=== PATIENT | female | born 1975 | race American Indian/Alaskan Native ===

== ENCOUNTER 2016-11-08 16:44 | Emergency (ER) | payer SELFPAY ==
[2016-11-08] MEDS ORDERED: CLEOCIN IM ONE (19:47)
[2016-11-08] MEDS ORDERED: NACL 0.9% IR ONE (19:47)
[2016-11-08] MEDS ORDERED: XYLOCAINE 1% 20 mL INFILTRATI ONE (19:47)
--- NOTE | 2016-11-08 19:49 | Emergency Department Report ---
ED General Adult HPI - General Chief complaint: Skin/Abscess/Foreign Body Stated complaint: BOIL UNDER R ARM Time Seen by Provider: 11/08/16 19:38 Source: patient Mode of arrival: Ambulatory Limitations: No Limitations - History of Present Illness Initial comments: PT c/o abscess under R arm. PT states it has been there for 1 week. PT states she has had abscesses before that have needed to be drained. PT denies n/v but reports chills. PT states she took Motrin 1 hr ago. MD Complaint: abscess Onset/Timin -: Gradual, week(s) Location: right (Axilla ) Radiation: non-radiation Severity scale (0 -10): 10 Quality: constant Consistency: constant Improves with: medication (mild ) Associated Symptoms: fever/chills (subjective ). denies: chest pain, headaches , nausea/vomiting Treatments Prior to Arrival: NSAID - Related Data Home Medications Medication Instructions Recorded Confirmed Last Taken Amitriptyline [Elavil] 10 mg PO QHS 07/09/16 07/09/16 Unknown Previous Rx's Medication Instructions Recorded Last Taken Type Ibuprofen [Motrin] 600 mg PO Q8H PRN #25 tablet 07/09/16 Unknown Rx Allergies Allergy/AdvReac Type Severity Reaction Status Date / Time amoxicillin Allergy Hives Verified 11/08/16 17:15 hydrocodone Allergy Unknown Verified 01/31/16 09:21 sulfamethoxazole Allergy Hives Verified 01/31/16 09:21 [From Bactrim] tramadol Allergy Unknown Verified 01/31/16 09:21 trimethoprim [From Bactrim] Allergy Hives Verified 01/31/16 09:21 ED Review of Systems ROS: Stated complaint: BOIL UNDER R ARM Other details as noted in HPI Constitutional: chills, fever Gastrointestinal: denies: nausea, vomiting Skin: as per HPI, change in color ED Past Medical Hx - Past Medical History Previous Medical History?: Yes Additional medical history: IBS, Boils, Lupus - Surgical History Past Surgical History?: Yes Additional Surgical History: Cervical fusion 2014 - Social History Smoking Status: Never Smoker Substance Use Type: None - Medications Home Medications: Home Medications Medication Instructions Recorded Confirmed Last Taken Type Amitriptyline [Elavil] 10 mg PO QHS 07/09/16 07/09/16 Unknown History Ibuprofen [Motrin] 600 mg PO Q8H PRN #25 tablet 07/09/16 Unknown Rx ED Physical Exam - General Limitations: No Limitations General appearance: alert, in no apparent distress - Head Head exam: Present: atraumatic, normocephalic - Eye Eye exam: Present: normal appearance. Absent: conjunctival injection - Neck Neck exam: Present: normal inspection, full ROM. Absent: lymphadenopathy - Respiratory Respiratory exam: Absent: respiratory distress, wheezes - Cardiovascular Cardiovascular Exam: Present: regular rate, normal rhythm - Extremities Exam Extremities exam: Present: full ROM, tenderness (to abscess to R axilla ), normal capillary refill - Back Exam Back exam: Present: normal inspection, full ROM - Neurological Exam Neurological exam: Present: alert, oriented X3 - Psychiatric Psychiatric exam: Present: normal affect, normal mood - Skin Skin exam: Present: warm, dry, erythema (abscess) ED Course Vital Signs 11/08/16 17:16 Temperature 99.3 F Pulse Rate 61 Respiratory 16 Rate Blood Pressure 112/68 O2 Sat by Pulse 100 Oximetry - Reevaluation(s) Reevaluation #1: 11/08/16 19:50 PT gave verbal consent for I and D Reevaluation #2: 11/08/16 20:28 PT tolerated the procedure well. no immediate complications - I & D Right Shoulder Type of Procedure: Simple Site: R axilla Blade Size: 11 I & D Procedure: betadine prep, sterile drapes applied, gauze wick placed Progress: 6 mls lidocaine used to anesthetize R axilla abscess. 11 blade used to make a 1cm incision. copious amount of purulent drainage. site flushed. locations broke up with hemostats and site packed with iodoform gauze - Pulse Oximetry Interpretation Digit-Finger Initial Pulse Oximetry Readin ED Medical Decision Making - Differential Diagnosis abscess, cellulitis Critical care attestation.: If time is entered above; I have spent that time in minutes in the direct care of this critically ill patient, excluding procedure time. ED Disposition Clinical Impression: Abscess Disposition: DISCHARGED TO HOME OR SELFCARE Is pt being admited?: No Does the pt Need Aspirin: No Condition: Stable Instructions: Abscess Incision and Drainage (ED), Abscess (ED) Additional Instructions: Warm compresses at least 4 times a day Finish all antibiotics Continue Motrin Packing removal in 2 days - return sooner if worsening or concerns Time of Disposition: 20:28
[2016-11-08 20:41] VITALS: BP 141/77
== END 2016-11-08 20:42 | disposition home or self-care (01) ==
LOC: ED 16:44
DX: L02.411 Cutaneous abscess of right axilla (principal); Z88.1 Allergy status to other antibiotic agents; Z88.2 Allergy status to sulfonamides; Z88.6 Allergy status to analgesic agent; Z88.8 Allergy status to other drugs, medicaments and biological substances
CPT/HCPCS: 96372

== ENCOUNTER 2017-08-21 10:07 | Emergency (ER) | payer OTHER ==
[2017-08-21 10:17] VITALS: BP 156/92
[2017-08-21] MEDS ORDERED: CLEOCIN PO ONE (11:55)
--- NOTE | 2017-08-21 11:57 | Emergency Department Report ---
Abscess Boil HPI - HPI Chief Complaint: Skin/Abscess/Foreign Body Stated Complaint: BOIL Time Seen by Provider: 08/21/17 11:32 Duration: 4 Days Location: Upper Extremity (Right armpit) History: Yes Pain, Yes Previous History, No Fever, No Purulent Drainage, No Numbness, No Foreign Body, No Insect Bite HPI: Patient is a 41-year-old female presents to ED complaining of ball underneath his right arm 1 week. Patient is states that it started off as a small boil and has gotten bigger in the past week. Patient states she has not noticed any draining at about that. Patient states she has before . Home Medications: Home Medications Medication Instructions Recorded Confirmed Last Taken Amitriptyline [Elavil] 10 mg PO QHS 07/09/16 07/09/16 Unknown Previous Rx's Medication Instructions Recorded Last Taken Type Clindamycin [Clindamycin CAP] 300 mg PO Q8H #30 cap 08/21/17 Unknown Rx Ibuprofen [Motrin 600 MG tab] 600 mg PO Q8H PRN #25 tablet 08/21/17 Unknown Rx Allergies/Adverse Reactions: Allergies Allergy/AdvReac Type Severity Reaction Status Date / Time amoxicillin Allergy Hives Verified 11/08/16 17:15 hydrocodone Allergy Unknown Verified 01/31/16 09:21 sulfamethoxazole Allergy Hives Verified 01/31/16 09:21 [From Bactrim] tramadol Allergy Unknown Verified 01/31/16 09:21 trimethoprim [From Bactrim] Allergy Hives Verified 01/31/16 09:21 ED Review of Systems ROS: Stated complaint: BOIL Other details as noted in HPI Constitutional: denies: chills, fever Eyes: denies: eye pain, eye discharge, vision change ENT: denies: ear pain, throat pain Respiratory: denies: cough, shortness of breath, wheezing Cardiovascular: denies: chest pain, palpitations Endocrine: no symptoms reported Gastrointestinal: denies: abdominal pain, nausea, diarrhea Genitourinary: denies: urgency, dysuria, discharge Musculoskeletal: denies: back pain, joint swelling, arthralgia Skin: denies: rash, lesions Neurological: denies: headache, weakness, paresthesias Psychiatric: denies: anxiety, depression Hematological/Lymphatic: denies: easy bleeding, easy bruising ED Past Medical Hx - Past Medical History Previous Medical History?: Yes Additional medical history: IBS, Boils, Lupus - Surgical History Past Surgical History?: Yes Additional Surgical History: Cervical fusion 2014 - Social History Smoking Status: Never Smoker Substance Use Type: None - Medications Home Medications: Home Medications Medication Instructions Recorded Confirmed Last Taken Type Amitriptyline [Elavil] 10 mg PO QHS 07/09/16 07/09/16 Unknown History Clindamycin [Clindamycin CAP] 300 mg PO Q8H #30 cap 08/21/17 Unknown Rx Ibuprofen [Motrin 600 MG tab] 600 mg PO Q8H PRN #25 tablet 08/21/17 Unknown Rx ED Abscess Boil Physical Exam - Exam General: Vital signs noted. No distress. Alert and acting appropriately. Front/Back of Body, Lg (Color): 1 - 4 cm flactulant abscess Size: 4 cm Exam: Yes Tenderness, Yes Fluctuance, No Surrounding Cellulites/Erythema, No Lymphangitis, No Crepitation, No Heart Murmur, No Normal Neurologic Exam, No Normal Circulation I & D Note - I & D Note I & D Note: Patient positioned appropriately, 10cc lidocaine without epinephrine was used as a local anesthetic. #11 blade scalpal used for single incision. Additional local anesthetic injected into surrounding viable tissue prior to blunt dissection of loculated adhesions. Copius drainage of pus. Wound packed with iodoform 1/4' gauze. Procedure tolerated without complications. Wound dressed with sterile 4x4 guaze and paper tape. Pt tolerated procedure well. ED Course Vital Signs 08/21/17 10:16 Temperature 98.2 F Pulse Rate 88 Respiratory 16 Rate Blood Pressure 156/92 O2 Sat by Pulse 100 Oximetry Critical care attestation.: If time is entered above; I have spent that time in minutes in the direct care of this critically ill patient, excluding procedure time. ED Medical Decision Making - Medical Decision Making 42 y .o female presents with right axilla abscess ED course: Patient tolerated procedure well I discussed with the patient to follow-up with primary care physician base. Discussed patient to return and 3 days for packing removal and wound check. Discussed the patient has symptoms worsen to return to ED immediately Vital signs are normalized patient has some acute distress. ED Disposition Clinical Impression: Right axillary hidradenitis Disposition: DC- TO HOME OR SELFCARE Is pt being admited?: No Does the pt Need Aspirin: No Condition: Stable Instructions: Acute Wound Care (ED), Adenitis (ED) Additional Instructions: Make sure to follow up with the primary care physician as discussed. Take all your medications as you've been prescribed. If you have any worsening symptoms or develop new symptoms please return to ED immediately. Return in 3 days for wound check Prescriptions: Clindamycin [Clindamycin CAP] 300 mg PO Q8H #30 cap Ibuprofen [Motrin 600 MG tab] 600 mg PO Q8H PRN #25 tablet PRN Reason: Pain Referrals: MICHI MONTERO MD [Staff Physician] - 3-[address] [facility] [Outside] - 3-5 Days [facility] [Outside] - 3-5 Days Forms: Work/School Release Form(ED)
[2017-08-21] MEDS ORDERED: XYLOCAINE 2% INFILTRATI ONE (12:33)
== END 2017-08-21 13:17 | disposition home or self-care (01) ==
LOC: ED 10:07
DX: L73.2 Hidradenitis suppurativa (principal)

== ENCOUNTER 2018-10-05 01:04 | Emergency (ER) | payer OTHER ==
[2018-10-05 03:43] VITALS: BP 153/74
[2018-10-05] MEDS ORDERED: IBUPROFEN PO ONE (07:19)
[2018-10-05] MEDS ORDERED: BENADRYL PO ONE (07:19)
--- NOTE | 2018-10-05 07:20 | Emergency Department Report ---
Abscess Boil HPI - HPI Chief Complaint: Skin/Abscess/Foreign Body Stated Complaint: BOIL UNDER R ARM Time Seen by Provider: 10/05/18 07:12 Duration: 5 Days Location: Upper Extremity (right armpit) Severity: Moderate History: Yes Pain, Yes Previous History, No Fever, No Purulent Drainage, No Numbness, No Foreign Body, No Insect Bite HPI: This is a 43-year-old female presents to the complaining of right armpit abscess. Patient complains hurts his swallowing has gotten bigger. She denies fevers/chills/nausea vomiting. Patient's issues at this before. Home Medications: Home Medications Medication Instructions Recorded Confirmed Last Taken Amitriptyline [Elavil] 10 mg PO QHS 07/09/16 07/09/16 Unknown Previous Rx's Medication Instructions Recorded Last Taken Type Clindamycin [Clindamycin CAP] 300 mg PO Q8H #30 cap 10/05/18 Unknown Rx Ibuprofen [Motrin 600 MG tab] 600 mg PO Q8H PRN #25 tablet 10/05/18 Unknown Rx Allergies/Adverse Reactions: Allergies Allergy/AdvReac Type Severity Reaction Status Date / Time amoxicillin Allergy Hives Verified 11/08/16 17:15 hydrocodone Allergy Unknown Verified 01/31/16 09:21 sulfamethoxazole Allergy Hives Verified 01/31/16 09:21 [From Bactrim] tramadol Allergy Unknown Verified 01/31/16 09:21 trimethoprim [From Bactrim] Allergy Hives Verified 01/31/16 09:21 ED Review of Systems ROS: Stated complaint: BOIL UNDER R ARM Other details as noted in HPI Comment: All other systems reviewed and negative ED Past Medical Hx - Past Medical History Previous Medical History?: No Additional medical history: IBS, Boils, Lupus - Surgical History Past Surgical History?: Yes Additional Surgical History: Cervical fusion 2014 - Social History Smoking Status: Never Smoker Substance Use Type: None - Medications Home Medications: Home Medications Medication Instructions Recorded Confirmed Last Taken Type Amitriptyline [Elavil] 10 mg PO QHS 07/09/16 07/09/16 Unknown History Clindamycin [Clindamycin CAP] 300 mg PO Q8H #30 cap 10/05/18 Unknown Rx Ibuprofen [Motrin 600 MG tab] 600 mg PO Q8H PRN #25 tablet 10/05/18 Unknown Rx ED Abscess Boil Physical Exam - Exam General: Vital signs noted. No distress. Alert and acting appropriately. Size: 5 cm Exam: Yes Tenderness, Yes Fluctuance, Yes Surrounding Cellulites/Erythema, Yes Normal Neurologic Exam, Yes Normal Circulation, No Lymphangitis, No Crepitation, No Heart Murmur I & D Note - I & D Note I & D Note: Patient positioned appropriately, 12cc lidocaine without epinephrine was used as a local anesthetic. #11 blade scalpal used for single incision. Additional local anesthetic injected into surrounding viable tissue prior to blunt dissection of loculated adhesions. Copius drainage of pus. Wound packed with iodoform gauze. Procedure tolerated without complications. Wound dressed with sterile 4x4 guaze and paper tape. Pt tolerated procedure well. ED Course Vital Signs 10/05/18 01:27 Temperature 99.3 F Pulse Rate 69 Respiratory 18 Rate Blood Pressure 153/74 O2 Sat by Pulse 100 Oximetry Critical care attestation.: If time is entered above; I have spent that time in minutes in the direct care of this critically ill patient, excluding procedure time. ED Medical Decision Making - Medical Decision Making 43-year-old female presents axillary abscess I&D performed, see I & D note Discussed with the patient to return to ED in 72 hours for packing removal and wound check Patient discharge and will be some clindamycin and Motrin for pain \ Patient is in no acute distress ED Disposition Clinical Impression: Abscess, Abscess of axilla, right Disposition: DC- TO HOME OR SELFCARE Is pt being admited?: No Does the pt Need Aspirin: No Condition: Stable Instructions: Abscess Incision and Drainage (ED), Abscess (ED) Additional Instructions: Make sure to follow up with the primary care physician as discussed. Take all your medications as you've been prescribed. If you have any worsening symptoms or develop new symptoms please return to ED immediately. Prescriptions: Clindamycin [Clindamycin CAP] 300 mg PO Q8H #30 cap Ibuprofen [Motrin 600 MG tab] 600 mg PO Q8H PRN #25 tablet PRN Reason: Pain Referrals: VADIM ALFRED MD [Primary Care Provider] - 3-5 Days MICHI MONTERO MD [Staff Physician] - 3-5 Days [facility] [Outside] - 3-5 Days [facility] [Outside] - 3-5 Days Forms: Accompanied Note, Work/School Release Form(ED) Time of Disposition: 08:00
[2018-10-05] MEDS ORDERED: XYLOCAINE 1% 20 mL INFILTRATI NR (07:30)
== END 2018-10-05 09:29 | disposition home or self-care (01) ==
LOC: ED 01:04
DX: L02.411 Cutaneous abscess of right axilla (principal); K58.9 Irritable bowel syndrome, unspecified; Z88.1 Allergy status to other antibiotic agents; Z88.2 Allergy status to sulfonamides; Z88.6 Allergy status to analgesic agent
CPT/HCPCS: 99282

== ENCOUNTER 2019-01-06 07:40 | Emergency (ER) | payer OTHER ==
[2019-01-06 07:47] VITALS: BP 142/84
--- NOTE | 2019-01-06 08:48 | Emergency Department Report ---
- General Chief complaint: Skin/Abscess/Foreign Body Stated complaint: LFT UNDERARM BOIL/PAIN Time Seen by Provider: 01/06/19 08:40 Source: patient Mode of arrival: Ambulatory Limitations: No Limitations - History of Present Illness MD complaint: abscess/boil -: days(s) (7) Location: LUE (axilla) Severity scale (0 -10): 5 Consistency: constant Associated symptoms: denies other symptoms - Related Data Home Medications Medication Instructions Recorded Confirmed Last Taken Amitriptyline [Elavil] 10 mg PO QHS 07/09/16 07/09/16 Unknown Previous Rx's Medication Instructions Recorded Last Taken Type Clindamycin [Clindamycin CAP] 300 mg PO Q8H #30 cap 10/05/18 Unknown Rx Ibuprofen [Motrin 600 MG tab] 600 mg PO Q8H PRN #25 tablet 10/05/18 Unknown Rx Allergies Allergy/AdvReac Type Severity Reaction Status Date / Time amoxicillin Allergy Hives Verified 11/08/16 17:15 hydrocodone Allergy Unknown Verified 01/31/16 09:21 sulfamethoxazole Allergy Hives Verified 01/31/16 09:21 [From Bactrim] tramadol Allergy Unknown Verified 01/31/16 09:21 trimethoprim [From Bactrim] Allergy Hives Verified 01/31/16 09:21 Abscess Boil HPI - HPI Chief Complaint: Skin/Abscess/Foreign Body Stated Complaint: LFT UNDERARM BOIL/PAIN Time Seen by Provider: 01/06/19 08:40 Home Medications: Home Medications Medication Instructions Recorded Confirmed Last Taken Amitriptyline [Elavil] 10 mg PO QHS 07/09/16 07/09/16 Unknown Previous Rx's Medication Instructions Recorded Last Taken Type Clindamycin [Clindamycin CAP] 300 mg PO Q8H #30 cap 10/05/18 Unknown Rx Ibuprofen [Motrin 600 MG tab] 600 mg PO Q8H PRN #25 tablet 10/05/18 Unknown Rx Allergies/Adverse Reactions: Allergies Allergy/AdvReac Type Severity Reaction Status Date / Time amoxicillin Allergy Hives Verified 11/08/16 17:15 hydrocodone Allergy Unknown Verified 01/31/16 09:21 sulfamethoxazole Allergy Hives Verified 01/31/16 09:21 [From Bactrim] tramadol Allergy Unknown Verified 01/31/16 09:21 trimethoprim [From Bactrim] Allergy Hives Verified 01/31/16 09:21 ED Review of Systems ROS: Stated complaint: LFT UNDERARM BOIL/PAIN Other details as noted in HPI Comment: All other systems reviewed and negative Constitutional: denies: chills, fever Respiratory: denies: cough, shortness of breath, SOB with exertion Cardiovascular: denies: chest pain, palpitations Gastrointestinal: denies: abdominal pain, nausea, vomiting Musculoskeletal: denies: back pain Neurological: denies: headache, weakness ED Past Medical Hx - Past Medical History Previous Medical History?: Yes Additional medical history: IBS, Boils, Lupus - Surgical History Past Surgical History?: Yes Additional Surgical History: Cervical fusion 2014 - Social History Smoking Status: Never Smoker Substance Use Type: None - Medications Home Medications: Home Medications Medication Instructions Recorded Confirmed Last Taken Type Amitriptyline [Elavil] 10 mg PO QHS 07/09/16 07/09/16 Unknown History Clindamycin [Clindamycin CAP] 300 mg PO Q8H #30 cap 10/05/18 Unknown Rx Ibuprofen [Motrin 600 MG tab] 600 mg PO Q8H PRN #25 tablet 10/05/18 Unknown Rx ED Physical Exam - General Limitations: No Limitations General appearance: alert, in no apparent distress - Head Head exam: Present: atraumatic, normocephalic, normal inspection - Eye Eye exam: Present: normal appearance - ENT ENT exam: Present: normal exam, normal orophraynx, mucous membranes moist - Neck Neck exam: Present: normal inspection, full ROM. Absent: tenderness, meningismus, lymphadenopathy, thyromegaly - Respiratory Respiratory exam: Present: normal lung sounds bilaterally - Cardiovascular Cardiovascular Exam: Present: regular rate, normal rhythm, normal heart sounds - GI/Abdominal GI/Abdominal exam: Present: soft. Absent: distended, tenderness, guarding, rebound, rigid - Back Exam Back exam: Present: normal inspection - Neurological Exam Neurological exam: Present: alert, oriented X3, CN II-XII intact - Skin Skin exam: Present: other (4x4 cm left axilla abscess) ED Course Vital Signs 01/06/19 07:45 Temperature 98.3 F Pulse Rate 74 Respiratory 16 Rate Blood Pressure 142/84 O2 Sat by Pulse 100 Oximetry - I & D Left Arm Type of Procedure: Simple Blade Size: 11 I & D Procedure: betadine prep, sterile drapes applied, sterile dressing applied, gauze wick placed Progress: excellent Critical care attestation.: If time is entered above; I have spent that time in minutes in the direct care of this critically ill patient, excluding procedure time. ED Disposition Clinical Impression: Abscess, Encounter for incision and drainage procedure, Suppurative hidradenitis Disposition: TO HOME OR SELFCARE Is pt being admited?: No Condition: Stable Instructions: Furunculosis and Carbunculosis (ED), Abscess Incision and Drainage (ED) Referrals: VADIM ALFRED MD [Primary Care Provider] - 3-5 Days
== END 2019-01-06 09:14 | disposition home or self-care (01) ==
LOC: ED 07:40
DX: L02.412 Cutaneous abscess of left axilla (principal); L73.2 Hidradenitis suppurativa; Z88.6 Allergy status to analgesic agent; Z88.1 Allergy status to other antibiotic agents; Z88.2 Allergy status to sulfonamides; Z88.8 Allergy status to other drugs, medicaments and biological substances
CPT/HCPCS: 99282

== ENCOUNTER 2019-05-13 08:30 | Emergency (ER) | payer OTHER ==
[2019-05-13] MEDS ORDERED: LIDOCAINE (1%) 10 MG/1 ML VIAL 20 ML MDV INFILTRATI ONE (09:25)
--- NOTE | 2019-05-13 09:25 | Emergency Department Report ---
Abscess Boil HPI - HPI Chief Complaint: Skin/Abscess/Foreign Body Stated Complaint: LFT BOIL UNDERARM PAIN Time Seen by Provider: 05/13/19 09:23 Duration: 2 Days Location: Upper Extremity Severity: Severe History: Yes Pain, Yes Purulent Drainage, Yes Previous History, No Fever, No Numbness, No Foreign Body Home Medications: Home Medications Medication Instructions Recorded Confirmed Last Taken Amitriptyline [Elavil] 10 mg PO QHS 07/09/16 07/09/16 Unknown Previous Rx's Medication Instructions Recorded Last Taken Type Clindamycin [Clindamycin CAP] 300 mg PO Q8H #30 cap 10/05/18 Unknown Rx Ibuprofen [Motrin 600 MG tab] 600 mg PO Q8H PRN #25 tablet 10/05/18 Unknown Rx Clindamycin [Clindamycin CAP] 300 mg PO Q8H #30 cap 05/13/19 Unknown Rx Ketorolac [Toradol] 10 mg PO Q6H PRN #20 tablet 05/13/19 Unknown Rx Allergies/Adverse Reactions: Allergies Allergy/AdvReac Type Severity Reaction Status Date / Time amoxicillin Allergy Hives Verified 11/08/16 17:15 hydrocodone Allergy Unknown Verified 01/31/16 09:21 sulfamethoxazole Allergy Hives Verified 01/31/16 09:21 [From Bactrim] tramadol Allergy Unknown Verified 01/31/16 09:21 trimethoprim [From Bactrim] Allergy Hives Verified 01/31/16 09:21 ED Review of Systems ROS: Stated complaint: LFT BOIL UNDERARM PAIN Other details as noted in HPI Comment: All other systems reviewed and negative Gastrointestinal: denies: nausea Genitourinary: denies: as per HPI Musculoskeletal: denies: back pain Skin: lesions ED Past Medical Hx - Past Medical History Previous Medical History?: No Additional medical history: IBS, Boils, Lupus - Surgical History Past Surgical History?: Yes Additional Surgical History: Cervical fusion 2014 - Social History Smoking Status: Never Smoker Substance Use Type: None - Medications Home Medications: Home Medications Medication Instructions Recorded Confirmed Last Taken Type Amitriptyline [Elavil] 10 mg PO QHS 16 07/09/16 Unknown History Clindamycin [Clindamycin CAP] 300 mg PO Q8H #30 cap 10/05/18 Unknown Rx Ibuprofen [Motrin 600 MG tab] 600 mg PO Q8H PRN #25 tablet 10/05/18 Unknown Rx Clindamycin [Clindamycin CAP] 300 mg PO Q8H #30 cap 05/13/19 Unknown Rx Ketorolac [Toradol] 10 mg PO Q6H PRN #20 tablet 05/13/19 Unknown Rx ED Abscess Boil Physical Exam - Exam General: Vital signs noted. No distress. Alert and acting appropriately. Size: 4 cm Exam: Yes Tenderness, Yes Fluctuance, Yes Surrounding Cellulites/Erythema, Yes Lymphangitis, No Crepitation, No Heart Murmur, No Normal Neurologic Exam, No Normal Circulation I & D Note - I & D Note I & D Note: area prepped in a sterile manner, lidocaine 1%, 5ml used, 11 blade used for 0.5 cm incision, drained purulent material, large. ED Course Vital Signs 05/13/19 08:45 Temperature 98.7 F Pulse Rate 69 Respiratory 16 Rate Blood Pressure 145/79 [Left] O2 Sat by Pulse 100 Oximetry Critical care attestation.: If time is entered above; I have spent that time in minutes in the direct care of this critically ill patient, excluding procedure time. ED Disposition Clinical Impression: Familial hidradenitis suppurativa type 1, Abscess of left axilla Disposition: DC-01 TO HOME OR SELFCARE Is pt being admited?: No Does the pt Need Aspirin: No Condition: Stable Instructions: Abscess Incision and Drainage (ED) Prescriptions: Clindamycin [Clindamycin CAP] 300 mg PO Q8H #30 cap Ketorolac [Toradol] 10 mg PO Q6H PRN #20 tablet PRN Reason: Pain Referrals: PRIMARY CARE, [Primary Care Provider] - 3-5 Days Forms: Work/School Release Form(ED)
[2019-05-13 10:08] VITALS: BP 136/84
== END 2019-05-13 10:08 | disposition home or self-care (01) ==
LOC: ED 08:30
DX: L02.412 Cutaneous abscess of left axilla (principal); L73.2 Hidradenitis suppurativa; Z88.1 Allergy status to other antibiotic agents; Z88.2 Allergy status to sulfonamides; Z88.5 Allergy status to narcotic agent; Z88.8 Allergy status to other drugs, medicaments and biological substances; Z79.1 Long term (current) use of non-steroidal anti-inflammatories (NSAID); Z79.899 Other long term (current) drug therapy
CPT/HCPCS: 99282

== ENCOUNTER 2019-05-24 09:27 | Outpatient (CLI) | payer OTHER ==
--- NOTE | 2019-05-24 11:12 | Ultrasound Report ---
ULTRASOUND ABDOMEN, COMPLETE INDICATION: R10.13) EPIGASTRIC PAIN/R11.0) NAUSEA. COMPARISON: None available. FINDINGS: Pancreas: Normal. Abdominal Aorta: Normal. IVC: Normal. Liver: Normal. Gallbladder: Normal. Bile ducts: Normal. Common Bile Duct measures 1.9 mm. Right Kidney: Normal. Left Kidney: Normal. Spleen: Normal. Free fluid: None. Additional Findings: None. IMPRESSION: 1. No sonographic abnormality of the abdomen. Signer Name: Randal Beth MD Signed: 05/24/2019 11:07 AM Workstation Name: [id number]
== END 2019-05-24 09:28 | disposition home or self-care (01) ==
LOC: US 09:27
PROVIDERS: ATTEND Internal Medicine Gastroenterology
DX: R10.13 Epigastric pain (principal); R11.0 Nausea
CPT/HCPCS: 76700

== ENCOUNTER 2019-06-14 09:43 | Emergency (ER) | payer OTHER ==
--- NOTE | 2019-06-14 11:16 | Emergency Department Report ---
Abscess Boil HPI - HPI Chief Complaint: Skin/Abscess/Foreign Body Stated Complaint: BOIL RT AXILLA Time Seen by Provider: 06/14/19 10:19 Duration: 1 Week Location: Upper Extremity (right axilla) Severity: Severe History: Yes Pain, Yes Previous History, No Fever, No Purulent Drainage, No Numbness, No Foreign Body, No Insect Bite HPI: This is a 43-year-old -Congol[place] female who presents to the emergency room with abscess to right axilla for one week. Past medical history of hydradenitis Suppurativa and irritable bowel syndrome. Patient states she apply warm compresses with no improvement of symptoms. Denies fever, chills, drainage, numbness or tingling, or weakness. Home Medications: Home Medications Medication Instructions Recorded Confirmed Last Taken Amitriptyline [Elavil] 10 mg PO QHS 07/09/16 07/09/16 Unknown Previous Rx's Medication Instructions Recorded Last Taken Type Clindamycin [Clindamycin CAP] 300 mg PO Q8H #30 cap 10/05/18 Unknown Rx Ibuprofen [Motrin 600 MG tab] 600 mg PO Q8H PRN #25 tablet 10/05/18 Unknown Rx Clindamycin [Clindamycin CAP] 300 mg PO Q8H #30 cap 05/13/19 Unknown Rx Ketorolac [Toradol] 10 mg PO Q6H PRN #20 tablet 05/13/19 Unknown Rx Doxycycline Hyclate [Doxycycline 100 mg PO Q12HR #20 tab 06/14/19 Unknown Rx Hyclate TAB] Fluconazole [Diflucan TAB] 150 mg PO ONCE #1 tablet 06/14/19 Unknown Rx Ibuprofen [Motrin 800 MG tab] 800 mg PO Q8HR PRN #20 tablet 06/14/19 Unknown Rx Allergies/Adverse Reactions: Allergies Allergy/AdvReac Type Severity Reaction Status Date / Time amoxicillin Allergy Hives Verified 11/08/16 17:15 hydrocodone Allergy Unknown Verified 01/31/16 09:21 sulfamethoxazole Allergy Hives Verified 01/31/16 09:21 [From Bactrim] tramadol Allergy Unknown Verified 01/31/16 09:21 trimethoprim [From Bactrim] Allergy Hives Verified 01/31/16 09:21 ED Review of Systems ROS: Stated complaint: BOIL RT AXILLA Other details as noted in HPI Constitutional: denies: chills, fever Respiratory: denies: cough, shortness of breath, wheezing Cardiovascular: denies: chest pain, palpitations Gastrointestinal: denies: abdominal pain, nausea, diarrhea Skin: lesions (right axilla abscess). denies: rash Neurological: denies: headache, weakness, paresthesias Psychiatric: denies: anxiety, depression ED Past Medical Hx - Past Medical History Previous Medical History?: Yes Additional medical history: IBS, Boils, Lupus - Surgical History Past Surgical History?: Yes Additional Surgical History: Cervical fusion 2014 - Social History Smoking Status: Current Some Day Smoker Substance Use Type: None - Medications Home Medications: Home Medications Medication Instructions Recorded Confirmed Last Taken Type Amitriptyline [Elavil] 10 mg PO QHS 07/09/16 07/09/16 Unknown History Clindamycin [Clindamycin CAP] 300 mg PO Q8H #30 cap 10/05/18 Unknown Rx Ibuprofen [Motrin 600 MG tab] 600 mg PO Q8H PRN #25 tablet 10/05/18 Unknown Rx Clindamycin [Clindamycin CAP] 300 mg PO Q8H #30 cap 05/13/19 Unknown Rx Ketorolac [Toradol] 10 mg PO Q6H PRN #20 tablet 05/13/19 Unknown Rx Doxycycline Hyclate [Doxycycline 100 mg PO Q12HR #20 tab 06/14/19 Unknown Rx Hyclate TAB] Fluconazole [Diflucan TAB] 150 mg PO ONCE #1 tablet 06/14/19 Unknown Rx Ibuprofen [Motrin 800 MG tab] 800 mg PO Q8HR PRN #20 tablet 06/14/19 Unknown Rx ED Abscess Boil Physical Exam - Exam General: Vital signs noted. No distress. Alert and acting appropriately. Front/Back of Body, Lg (Color): 1 - 3 cm fluctuant nodule to right axilla, tenderness, scarring below. No drainage or surrounding cellulitis. Size: 3 cm Exam: Yes Tenderness, Yes Fluctuance, Yes Normal Neurologic Exam, Yes Normal Circulation, No Surrounding Cellulites/Erythema, No Lymphangitis, No Crepitation, No Heart Murmur I & D Note - I & D Note I & D Note: The area was prepared and draped in the usual, sterile manner. The site was anesthetized with 2% lidocaine without epinephrine. A linear incision along the local skin lines was made and the purulent material expressed. The abcess was explored thoroughly and sequestered pockets were opened. Bleeding was minimal. Packing: idodoform. Followup: The patient tolerated the procedure well without complications. Standard post-procedure care was explained and return precautions are given. ED Course Vital Signs 06/14/19 06/14/19 10:02 10:17 Temperature 98.7 F Pulse Rate 78 Respiratory 18 17 Rate Blood Pressure 155/88 O2 Sat by Pulse 100 Oximetry Critical care attestation.: If time is entered above; I have spent that time in minutes in the direct care of this critically ill patient, excluding procedure time. ED Medical Decision Making - Medical Decision Making Patient is stable and examined by me. Vitals are normal. Past history of hydradenitis Supprativa and irritable bowel syndrome. Patient is stable and examined by me. Physical assessment of 3 cm fluctuance nodule to right axilla. No acute signs of distress noted. I&D refer to note. Start doxycycline and ibuprofen. Educated patient on follow up plan to have packing removed and wound reassessed in 2-3 days. Patient agrees to ED plan of care. Discharged home and follow up with PCP in 2-3 days. ED Disposition Clinical Impression: Hidradenitis suppurativa, Abscess of axilla, right Disposition: DC-01 TO HOME OR SELFCARE Is pt being admited?: No Condition: Stable Instructions: Abscess (ED), Incision and Drainage (ED) Additional Instructions: Keep packing in place for 2-3 days. Return to ER or f/u with PCP to have packing removed and wound reassessed. Complete full round of doxycycline antibiotic as prescribed. Follow up with PCP or ER in 2-3 days. Return to ER if foul smelling discharge, swelling, or severe pain to wound. Prescriptions: Fluconazole [Diflucan TAB] 150 mg PO ONCE #1 tablet Doxycycline Hyclate [Doxycycline Hyclate TAB] 100 mg PO Q12HR #20 tab Ibuprofen [Motrin 800 MG tab] 800 mg PO Q8HR PRN #20 tablet PRN Reason: Pain , Severe (7-10) Referrals: NENA TORRES DO [Staff Physician] - 3-5 Days [facility] [Provider Group] - 3-5 Days [facility] [Provider Group] - 3-5 Days Time of Disposition: 13:15
[2019-06-14 13:30] VITALS: BP 169/93
== END 2019-06-14 13:38 | disposition home or self-care (01) ==
LOC: ED 09:43
DX: L73.2 Hidradenitis suppurativa (principal); F17.200 Nicotine dependence, unspecified, uncomplicated; Z98.890 Other specified postprocedural states; Z79.899 Other long term (current) drug therapy; Z88.1 Allergy status to other antibiotic agents; Z88.5 Allergy status to narcotic agent; Z88.2 Allergy status to sulfonamides; Z88.8 Allergy status to other drugs, medicaments and biological substances

== ENCOUNTER 2020-04-25 08:42 | Emergency (ER) | payer OTHER ==
--- NOTE | 2020-04-25 10:01 | Emergency Department Report ---
- General Chief complaint: Skin/Abscess/Foreign Body Stated complaint: BOIL UNDER ARMS Time Seen by Provider: 04/25/20 09:44 Source: patient Mode of arrival: Ambulatory Limitations: No Limitations - History of Present Illness Initial comments: 44-year-old -Slovenian female presents to the emergency room complaining of boils to the both underarms x2 weeks. Patient reports she has a history of hidradenitis. Patient states that the pain is not as bad as they usually are. Patient states that she has been to the legal summer intern in the past they had given her shot and it had helped and this is her first boil she has had in 6 months. Patient denies any fever chills no nausea no vomiting. - Related Data Home Medications Medication Instructions Recorded Confirmed Last Taken Amitriptyline [Elavil] 10 mg PO QHS 07/09/16 07/09/16 Unknown Previous Rx's Medication Instructions Recorded Last Taken Type Clindamycin [Clindamycin CAP] 300 mg PO Q8H #30 cap 10/05/18 Unknown Rx Ibuprofen [Motrin 600 MG tab] 600 mg PO Q8H PRN #25 tablet 10/05/18 Unknown Rx Ketorolac [Toradol] 10 mg PO Q6H PRN #20 tablet 05/13/19 Unknown Rx Doxycycline Hyclate [Doxycycline 100 mg PO Q12HR #20 tab 06/14/19 Unknown Rx Hyclate TAB] predniSONE [Deltasone] 20 mg PO QDAY #5 tab 01/24/20 Unknown Rx Clindamycin [Clindamycin CAP] 300 mg PO Q8H #30 cap 04/25/20 Unknown Rx Fluconazole (Nf) [Diflucan TAB] 150 mg PO ONCE #1 tablet 04/25/20 Unknown Rx Ibuprofen [Motrin 800 MG tab] 800 mg PO Q8HR PRN #20 tablet 04/25/20 Unknown Rx Allergies Allergy/AdvReac Type Severity Reaction Status Date / Time amoxicillin Allergy Hives Verified 11/08/16 17:15 hydrocodone Allergy Unknown Verified 01/31/16 09:21 sulfamethoxazole Allergy Hives Verified 01/31/16 09:21 [From Bactrim] tramadol Allergy Unknown Verified 01/31/16 09:21 trimethoprim [From Bactrim] Allergy Hives Verified 01/31/16 09:21 Abscess Boil HPI - HPI Chief Complaint: Skin/Abscess/Foreign Body Stated Complaint: BOIL UNDER ARMS Time Seen by Provider: 04/25/20 09:44 Home Medications: Home Medications Medication Instructions Recorded Confirmed Last Taken Amitriptyline [Elavil] 10 mg PO QHS 07/09/16 07/09/16 Unknown Previous Rx's Medication Instructions Recorded Last Taken Type Clindamycin [Clindamycin CAP] 300 mg PO Q8H #30 cap 10/05/18 Unknown Rx Ibuprofen [Motrin 600 MG tab] 600 mg PO Q8H PRN #25 tablet 10/05/18 Unknown Rx Ketorolac [Toradol] 10 mg PO Q6H PRN #20 tablet 05/13/19 Unknown Rx Doxycycline Hyclate [Doxycycline 100 mg PO Q12HR #20 tab 06/14/19 Unknown Rx Hyclate TAB] predniSONE [Deltasone] 20 mg PO QDAY #5 tab 01/24/20 Unknown Rx Clindamycin [Clindamycin CAP] 300 mg PO Q8H #30 cap 04/25/20 Unknown Rx Fluconazole (Nf) [Diflucan TAB] 150 mg PO ONCE #1 tablet 04/25/20 Unknown Rx Ibuprofen [Motrin 800 MG tab] 800 mg PO Q8HR PRN #20 tablet 04/25/20 Unknown Rx Allergies/Adverse Reactions: Allergies Allergy/AdvReac Type Severity Reaction Status Date / Time amoxicillin Allergy Hives Verified 11/08/16 17:15 hydrocodone Allergy Unknown Verified 01/31/16 09:21 sulfamethoxazole Allergy Hives Verified 01/31/16 09:21 [From Bactrim] tramadol Allergy Unknown Verified 01/31/16 09:21 trimethoprim [From Bactrim] Allergy Hives Verified 01/31/16 09:21 ED Review of Systems ROS: Stated complaint: BOIL UNDER ARMS Other details as noted in HPI Comment: All other systems reviewed and negative ED Past Medical Hx - Past Medical History Previous Medical History?: Yes Additional medical history: Lupus - Surgical History Past Surgical History?: Yes Additional Surgical History: Cervical fusion 2014 - Social History Smoking Status: Never Smoker Substance Use Type: None - Medications Home Medications: Home Medications Medication Instructions Recorded Confirmed Last Taken Type Amitriptyline [Elavil] 10 mg PO QHS 07/09/16 07/09/16 Unknown History Clindamycin [Clindamycin CAP] 300 mg PO Q8H #30 cap 10/05/18 Unknown Rx Ibuprofen [Motrin 600 MG tab] 600 mg PO Q8H PRN #25 tablet 10/05/18 Unknown Rx Ketorolac [Toradol] 10 mg PO Q6H PRN #20 tablet 05/13/19 Unknown Rx Doxycycline Hyclate [Doxycycline 100 mg PO Q12HR #20 tab 06/14/19 Unknown Rx Hyclate TAB] predniSONE [Deltasone] 20 mg PO QDAY #5 tab 01/24/20 Unknown Rx Clindamycin [Clindamycin CAP] 300 mg PO Q8H #30 cap 04/25/20 Unknown Rx Fluconazole (Nf) [Diflucan TAB] 150 mg PO ONCE #1 tablet 04/25/20 Unknown Rx Ibuprofen [Motrin 800 MG tab] 800 mg PO Q8HR PRN #20 tablet 04/25/20 Unknown Rx ED Physical Exam - General Limitations: No Limitations General appearance: alert - Head Head exam: Present: atraumatic, normocephalic - Eye Eye exam: Present: normal appearance - ENT ENT exam: Present: mucous membranes moist - Extremities Exam Extremities exam: Present: normal inspection - Back Exam Back exam: Present: normal inspection - Neurological Exam Neurological exam: Present: alert, oriented X3 - Psychiatric Psychiatric exam: Present: normal affect, normal mood - Expanded Skin Exam Expanded Distribution of rash: RUE (Axillary), LUE (Axillary) Description of rash: Present: size (Ping-pong ball), tenderness, indurated. Absent: erythematous, discharge, fluctuant ED Medical Decision Making - Medical Decision Making 44-year-old -[place] female presents to the emergency room complaining of boils to the both underarms x2 weeks. Patient reports she has a history of hidradenitis. Patient states that the pain is not as bad as they usually are. Patient states that she has been to the legal summer intern in the past they had given her shot and it had helped and this is her first boil she has had in 6 months. Patient denies any fever chills no nausea no vomiting. I will place patient on antibiotics and a referral to general surgeon for evaluation. Patient be placed on clindamycin 300 mg every 8 hours for 10 days. Patient can take ibuprofen for pain management. Encouraged to continue with warm compresses. Critical care attestation.: If time is entered above; I have spent that time in minutes in the direct care of this critically ill patient, excluding procedure time. ED Disposition Clinical Impression: Abscess, Hydradenitis Disposition: DC-01 TO HOME OR SELFCARE Is pt being admited?: No Does the pt Need Aspirin: No Condition: Stable Instructions: Abscess (ED) Additional Instructions: Complete antibiotics as prescribed. Take pain medication as needed and is very important for you to follow-up with a general surgeon I have listed their inf ormation below for your convenience. Prescriptions: Clindamycin [Clindamycin CAP] 300 mg PO Q8H #30 cap Fluconazole (Nf) [Diflucan TAB] 150 mg PO ONCE #1 tablet Ibuprofen [Motrin 800 MG tab] 800 mg PO Q8HR PRN #20 tablet PRN Reason: Pain , Severe (7-10) Referrals: SUHAIL LOREDO MD [Primary Care Provider] - 3-5 Days ROGER GEORGE MD [Staff Physician] - 3-5 Days Forms: Work/School Release Form(ED)
== END 2020-04-25 10:08 | disposition home or self-care (01) ==
LOC: ED 08:42
DX: L73.2 Hidradenitis suppurativa (principal); L02.91 Cutaneous abscess, unspecified; Z79.899 Other long term (current) drug therapy; Z98.890 Other specified postprocedural states; Z88.0 Allergy status to penicillin; Z88.8 Allergy status to other drugs, medicaments and biological substances; Z88.2 Allergy status to sulfonamides
CPT/HCPCS: 99282

== ENCOUNTER 2020-04-27 12:31 | Emergency (ER) | payer OTHER ==
[2020-04-27 12:45] VITALS: BP 128/75
--- NOTE | 2020-04-27 17:57 | Emergency Department Report ---
- General Chief complaint: Skin/Abscess/Foreign Body Stated complaint: BOIL Time Seen by Provider: 04/27/20 14:26 Source: patient Mode of arrival: Ambulatory Limitations: No Limitations - History of Present Illness Initial comments: Patient is a 44-year-old female with a history of hidradenitis suprativa who presents emergency room with complaints of abscesses to the bilateral axilla that began initially 2 weeks ago. She was evaluated in the emergency department 2 days ago and was placed on clindamycin at that time. She states that the right axilla is improving. She states that the left axilla has worsened and has become more painful and more swelling. She denies any drainage, fever, vomiting. She states that approximately 6 or 7 months ago she went to a senior java software developer and had injections which she states helped her hidradenitis but she has not been back since then. She states that she also has an appointment with a general surgeon. She states that she also has a past medical history of lupus. She has an allergy to amoxicillin, hydrocodone, Bactrim, tramadol. She states her cycle is currently on. - Related Data Home Medications Medication Instructions Recorded Confirmed Last Taken Amitriptyline [Elavil] 10 mg PO QHS 07/09/16 07/09/16 Unknown Previous Rx's Medication Instructions Recorded Last Taken Type Clindamycin [Clindamycin CAP] 300 mg PO Q8H #30 cap 10/05/18 Unknown Rx Ibuprofen [Motrin 600 MG tab] 600 mg PO Q8H PRN #25 tablet 10/05/18 Unknown Rx Ketorolac [Toradol] 10 mg PO Q6H PRN #20 tablet 05/13/19 Unknown Rx Doxycycline Hyclate [Doxycycline 100 mg PO Q12HR #20 tab 06/14/19 Unknown Rx Hyclate TAB] predniSONE [Deltasone] 20 mg PO QDAY #5 tab 01/24/20 Unknown Rx Clindamycin [Clindamycin CAP] 300 mg PO Q8H #30 cap 04/25/20 Unknown Rx Fluconazole (Nf) [Diflucan TAB] 150 mg PO ONCE #1 tablet 04/25/20 Unknown Rx Ibuprofen [Motrin 800 MG tab] 800 mg PO Q8HR PRN #20 tablet 04/25/20 Unknown Rx Acetaminophen/Codeine [Tylenol 1 tab PO Q6H PRN #10 tab 04/27/20 Unknown Rx /Codeine # 3 tab] Allergies Allergy/AdvReac Type Severity Reaction Status Date / Time amoxicillin Allergy Hives Verified 04/27/20 12:41 hydrocodone Allergy Unknown Verified 04/27/20 12:41 sulfamethoxazole Allergy Hives Verified 04/27/20 12:41 [From Bactrim] tramadol Allergy Unknown Verified 04/27/20 12:41 trimethoprim [From Bactrim] Allergy Hives Verified 04/27/20 12:41 Abscess Boil HPI - HPI Chief Complaint: Skin/Abscess/Foreign Body Stated Complaint: BOIL Time Seen by Provider: 04/27/20 14:26 Home Medications: Home Medications Medication Instructions Recorded Confirmed Last Taken Amitriptyline [Elavil] 10 mg PO QHS 07/09/16 07/09/16 Unknown Previous Rx's Medication Instructions Recorded Last Taken Type Clindamycin [Clindamycin CAP] 300 mg PO Q8H #30 cap 10/05/18 Unknown Rx Ibuprofen [Motrin 600 MG tab] 600 mg PO Q8H PRN #25 tablet 10/05/18 Unknown Rx Ketorolac [Toradol] 10 mg PO Q6H PRN #20 tablet 05/13/19 Unknown Rx Doxycycline Hyclate [Doxycycline 100 mg PO Q12HR #20 tab 06/14/19 Unknown Rx Hyclate TAB] predniSONE [Deltasone] 20 mg PO QDAY #5 tab 01/24/20 Unknown Rx Clindamycin [Clindamycin CAP] 300 mg PO Q8H #30 cap 04/25/20 Unknown Rx Fluconazole (Nf) [Diflucan TAB] 150 mg PO ONCE #1 tablet 04/25/20 Unknown Rx Ibuprofen [Motrin 800 MG tab] 800 mg PO Q8HR PRN #20 tablet 04/25/20 Unknown Rx Acetaminophen/Codeine [Tylenol 1 tab PO Q6H PRN #10 tab 04/27/20 Unknown Rx /Codeine # 3 tab] Allergies/Adverse Reactions: Allergies Allergy/AdvReac Type Severity Reaction Status Date / Time amoxicillin Allergy Hives Verified 04/27/20 12:41 hydrocodone Allergy Unknown Verified 04/27/20 12:41 sulfamethoxazole Allergy Hives Verified 04/27/20 12:41 [From Bactrim] tramadol Allergy Unknown Verified 04/27/20 12:41 trimethoprim [From Bactrim] Allergy Hives Verified 04/27/20 12:41 ED Review of Systems ROS: Stated complaint: BOIL Other details as noted in HPI Comment: All other systems reviewed and negative ED Past Medical Hx - Past Medical History Additional medical history: Lupus/IBS - Surgical History Additional Surgical History: Cervical fusion 2014 - Social History Smoking Status: Never Smoker Substance Use Type: None - Medications Home Medications: Home Medications Medication Instructions Recorded Confirmed Last Taken Type Amitriptyline [Elavil] 10 mg PO QHS 07/09/16 07/09/16 Unknown History Clindamycin [Clindamycin CAP] 300 mg PO Q8H #30 cap 10/05/18 Unknown Rx Ibuprofen [Motrin 600 MG tab] 600 mg PO Q8H PRN #25 tablet 10/05/18 Unknown Rx Ketorolac [Toradol] 10 mg PO Q6H PRN #20 tablet 05/13/19 Unknown Rx Doxycycline Hyclate [Doxycycline 100 mg PO Q12HR #20 tab 06/14/19 Unknown Rx Hyclate TAB] predniSONE [Deltasone] 20 mg PO QDAY #5 tab 01/24/20 Unknown Rx Clindamycin [Clindamycin CAP] 300 mg PO Q8H #30 cap 04/25/20 Unknown Rx Fluconazole (Nf) [Diflucan TAB] 150 mg PO ONCE #1 tablet 04/25/20 Unknown Rx Ibuprofen [Motrin 800 MG tab] 800 mg PO Q8HR PRN #20 tablet 04/25/20 Unknown Rx Acetaminophen/Codeine [Tylenol 1 tab PO Q6H PRN #10 tab 04/27/20 Unknown Rx /Codeine # 3 tab] ED Physical Exam - General Limitations: No Limitations General appearance: alert, in no apparent distress - Head Head exam: Present: atraumatic, normocephalic - Eye Eye exam: Present: normal appearance - ENT ENT exam: Present: mucous membranes moist - Neurological Exam Neurological exam: Present: alert, oriented X3 - Psychiatric Psychiatric exam: Present: normal affect, normal mood - Skin Skin exam: Present: warm, dry, other (6 cm area of induration present to the lef t axilla, there is a 3 cm area of central fluctuance, no active drainage, no necrosis, no surrounding erythema, right axilla with a couple of small areas of induration but no fluctuance and no surrounding erythema) ED Course Vital Signs 04/27/20 04/27/20 12:41 18:35 Temperature 98.5 F Pulse Rate 77 57 L Respiratory 18 18 Rate Blood Pressure 128/75 O2 Sat by Pulse 100 100 Oximetry - I & D Left Arm Type of Procedure: Simple Site: left axilla Blade Size: 11 I & D Procedure: betadine prep, sterile drapes applied, sterile dressing applied Progress: Skin prepped with Betadine, 5 cc of 2% lidocaine without epinephrine used as anesthetic, Betadine prep again, sterile drapes applied, 2 cm incision made with 11 blade, copious amounts of purulent, foul odor drainage expressed, irrigated with saline, packed with iodoform gauze, patient tolerated well, no complications, bleeding controlled, sterile dressing applied ED Medical Decision Making - Medical Decision Making Patient is a 44-year-old female with a history of hidradenitis suprativa who presents emergency room with complaints of abscesses to the bilateral axilla that began initially 2 weeks ago. She was evaluated in the emergency department 2 days ago and was placed on clindamycin at that time. She states that the right axilla is improving. She states that the left axilla has worsened and has become more painful and more swelling. She denies any drainage, fever, vomiting. She states that approximately 6 or 7 months ago she went to a senior java software developer and had injections which she states helped her hidradenitis but she has not been back since then. She states that she also has an appointment with a general surgeon. She states that she also has a past medical history of lupus. She has an allergy to amoxicillin, hydrocodone, Bactrim, tramadol. She states her cycle is currently on. vitals are normal. on exam: 6 cm area of induration present to the left axilla, there is a 3 cm area of central fluctuance, no active drainage, no necrosis, no surrounding erythema, right axilla with a couple of small areas of induration but no fluctuance and no surrounding erythema. I&D performed per procedure note, iodoform placed. pt given prescription for tylenol #3. advised pt Please complete the antibiotics that were given during your last visit. Please take medication as prescribed as needed. Do not drive, operate heavy machinery, work while taking pain medication. Please keep area clean, dry, covered. Packing needs to be removed within the next 2 days, may return to emergency room for removal. May wash around area with soap and water and pat dry. No hot tub, no pool, no soaking in water. Follow-up with a primary care doctor. Follow-up with a senior java software developer. Follow-up with a general surgeon. Return to emergency room for any new or worsening symptoms. Critical care attestation.: If time is entered above; I have spent that time in minutes in the direct care of this critically ill patient, excluding procedure time. ED Disposition Clinical Impression: Axillary abscess, Hidradenitis suppurativa Disposition: DC- TO HOME OR SELFCARE Is pt being admited?: No Does the pt Need Aspirin: No Condition: Stable Instructions: Abscess Incision and Drainage (ED) Additional Instructions: Please complete the antibiotics that were given during your last visit. Please take medication as prescribed as needed. Do not drive, operate heavy machinery, work while taking pain medication. Please keep area clean, dry, covered. Packing needs to be removed within the next 2 days, may return to emergency room for removal. May wash around area with soap and water and pat dry. No hot tub, no pool, no soaking in water. Follow-up with a primary care doctor. Follow-up with a senior java software developer. Follow-up with a general surgeon. Return to emergency room for any new or worsening symptoms. Prescriptions: Acetaminophen/Codeine [Tylenol /Codeine # 3 tab] 1 tab PO Q6H PRN #10 tab PRN Reason: Pain , Severe (7-10) Referrals: your, primary care doctor [Other] - 2-3 Days your, surgeon [Other] - 2-3 Days your, senior java software developer [Other] - 2-3 Days Time of Disposition: 18:03 Print Language: FAROESE
[2020-04-27] MEDS ORDERED: LIDOCAINE (2%) 20 MG/1 ML VIAL 20 ML MDV INFILTRATI ONE (18:02)
== END 2020-04-27 18:27 | disposition home or self-care (01) ==
LOC: ED 12:31
DX: L02.412 Cutaneous abscess of left axilla (principal); L02.411 Cutaneous abscess of right axilla; L73.2 Hidradenitis suppurativa; Z98.890 Other specified postprocedural states; Z79.1 Long term (current) use of non-steroidal anti-inflammatories (NSAID); Z79.2 Long term (current) use of antibiotics; Z79.899 Other long term (current) drug therapy; Z88.1 Allergy status to other antibiotic agents; Z88.8 Allergy status to other drugs, medicaments and biological substances
CPT/HCPCS: 99282

== ENCOUNTER 2021-03-18 11:36 | Emergency (ER) | payer OTHER | END 2021-03-18 14:08 | LOC: ED 11:36 | DX: L02.429 Furuncle of limb, unspecified (principal); Z53.21 Procedure and treatment not carried out due to patient leaving prior to being seen by health care provider ==